=== PATIENT | female | born 1960 | race Caucasian/White ===

== ENCOUNTER → 2016-08-08 | Outpatient (CLI) | payer MEDICARE, MEDICAID ==
--- NOTE | 2016-08-08 14:50 | EKG REPORT ---
SEVERITY:- NORMAL ECG - SINUS RHYTHM : Confirmed by: Akanksha Cline 08-Aug-2016 14:49:48
== END ==
LOC: OD 12:45
PROVIDERS: ATTEND Physician Assistant
DX: Z79.899 Other long term (current) drug therapy (principal)
CPT/HCPCS: 93005; 93010

== ENCOUNTER → 2017-02-25 | Outpatient (CLI) | payer MEDICARE, MEDICAID ==
[2017-02-25 12:02] LABS: ABSOLUTE EOSINOPHILS # (AUTO) 0.1 10^3/uL (0.0-0.6); ABSOLUTE LYMPHOCYTES (AUTO) 1.9 10^3/uL (0.5-4.7); ABSOLUTE MONOCYTES (AUTO) 0.5 10^3/uL (0.1-1.4); ABSOLUTE NEUT (AUTO) 3.7 10^3/uL (1.7-8.2); BASOPHILS % (AUTO) 0.3 % (0-2); EOSINOPHILS % (AUTO) 1.6 % (0-6); HEMOGLOBIN 12.6 g/dL (12.0-15.5); HGB HCT DIFFERENCE 1.8; MEAN CORPUSCULAR HEMOGLOBIN 31.5 pg (27.0-33.4); MEAN CORPUSCULAR VOLUME 90 fl (80-97); MONOCYTES % (AUTO) 7.8 % (3-13); RED BLOOD COUNT 4.01 10^6/uL (3.72-5.28); SEGMENTED NEUTROPHILS % (AUTO) 59.3 % (42-78); WHITE BLOOD COUNT 6.3 10^3/uL (4.0-10.5)
[2017-02-25 12:13] LABS: APPEARANCE,URINE SLIGHTLY-CLOUDY; BILIRUBIN,URINE NEGATIVE (NEGATIVE); GLUCOSE, URINE NEGATIVE (NEGATIVE); KETONES,URINE NEGATIVE (NEGATIVE); LEUKOCYTE ESTERASE,URINE MODERATE (NEGATIVE); NITRITE,URINE NEGATIVE (NEGATIVE); PROTEIN,URINE NEGATIVE (NEGATIVE); URINE SPECIFIC GRAVITY 1.024; UROBILINOGEN,URINE NEGATIVE mg/dL (<2.0)
--- NOTE | 2017-02-25 12:18 | RADIOLOGY REPORT (SQ) ---
EXAM DESCRIPTION: CHEST PA/LATERAL COMPLETED DATE/TIME: 02/25/2017 12:01 pm REASON FOR STUDY: PRE OP COMPARISON: None. EXAM PARAMETERS: NUMBER OF VIEWS: two views TECHNIQUE: Digital Frontal and Lateral radiographic views of the chest acquired. RADIATION DOSE: NA LIMITATIONS: none FINDINGS: LUNGS AND PLEURA: No opacities, masses or pneumothorax. No pleural effusion. MEDIASTINUM AND HILAR STRUCTURES: No masses or contour abnormalities. HEART AND VASCULAR STRUCTURES: Heart normal size. No evidence for failure. BONES: No acute findings. HARDWARE: Partially visualized right total shoulder arthroplasty. OTHER: No other significant finding. IMPRESSION: NO SIGNIFICANT RADIOGRAPHIC FINDING IN THE CHEST. TECHNICAL DOCUMENTATION: JOB ID: [id number] [employer]- All Rights Reserved
[2017-02-25 12:22] LABS: ANION GAP 11 (5-19); BLOOD UREA NITROGEN 17 mg/dL (7-20); CALCIUM 9.3 mg/dL (8.4-10.2); CARBON DIOXIDE 25 mmol/L (22-30); CHLORIDE 105 mmol/L (98-107); CREATININE RESULT 0.96 mg/dL (0.52-1.25); GLUCOSE 114 mg/dL (75-110); POTASSIUM 3.9 mmol/L (3.6-5.0); SODIUM 140.7 mmol/L (137-145)
--- NOTE | 2017-02-25 13:30 | EKG REPORT ---
SEVERITY:- BORDERLINE ECG - SINUS RHYTHM NONSPECIFIC ST-T CHANGES : Confirmed by: Pritesh Toure MD 25-Feb-2017 13:29:32
== END ==
LOC: OD 10:24
PROVIDERS: ATTEND Orthopaedic Surgery
DX: Z01.810 Encounter for preprocedural cardiovascular examination (principal); Z01.812 Encounter for preprocedural laboratory examination; Z01.818 Encounter for other preprocedural examination
CPT/HCPCS: 36415; 71020; 80048; 81001; 85025; 93005; 93010

== ENCOUNTER 2017-03-23 09:36 | Inpatient (IN) | payer MEDICARE, MEDICAID ==
[~2017-03-23 09:36] MED LIST: CEFAZOLIN INJ 1 GM VIAL ONE; IBUPROFEN 800 MG/NS 250 ML IV PRN; LACTATED RINGERS 1000 ML IV PRN; LANSOPRAZOLE 15 MG TAB.RAP.DR PO PRN; LIDOCAINE 0.5% INJ-PF (5 MG/ML) 50 ML SDV SUBCUT PRN; OXYCODONE HCL SR 10 MG TABLET PO PRN; PHENYLEPHRINE HCL INJ/PF 10 MG/1 ML SDV ONE; SUCCINYLCHOLINE CHLORIDE INJ 200 MG/10 ML VIAL ONE; VANCOMYCIN HCL 1,000 MG in DEXTROSE 5%-WATER 250 ML IV PRN
[2017-03-23] MEDS ORDERED: TRANEXAMIC ACID INJ/PF 1,000 MG/10 ML SDV IV ONE ×2 (11:31→15:00)
[2017-03-23] MEDS ORDERED: PROPOFOL INJ 200 MG/20 ML VIAL IV ONE ×2 (11:31)
[2017-03-23] MEDS ORDERED: LIDOCAINE 2% INJ-PF (20 MG/ML) 10 ML AMPUL ONE (11:31)
[2017-03-23] MEDS ORDERED: FENTANYL CITRATE INJ/PF 250 MCG/5 ML AMPULE ONE ×2 (11:31)
[2017-03-23] MEDS ORDERED: ONDANSETRON HCL INJ/PF 4 MG/2 ML SDV ONE ×2 (11:31)
[2017-03-23] MEDS ORDERED: MIDAZOLAM 2 MG/2 ML INJ ONE ×2 (11:31)
[2017-03-23] MEDS ORDERED: THROMBIN (BOVINE) TOPICAL 20000 UNIT VIAL ONE (11:38)
[2017-03-23] MEDS ORDERED: THROMBIN (BOVINE) TOPICAL 5000 UNIT VIAL ONE (11:38)
[2017-03-23] MEDS ORDERED: VANCOMYCIN HCL INJ 1000 MG VIAL ONE (12:24)
[2017-03-23] MEDS ORDERED: PROMETHAZINE HCL INJ 25 MG/1 ML VIAL IV PRN ×2 (12:29)
[2017-03-23] MEDS ORDERED: ONDANSETRON HCL INJ/PF 4 MG/2 ML SDV IV PRN (12:29)
[2017-03-23] MEDS ORDERED: FENTANYL CITRATE INJ/PF 100 MCG/2 ML AMPUL IV PRN ×3 (12:29)
[2017-03-23] MEDS ORDERED: MEPERIDINE HCL/PF INJ 25 MG/1 ML DISP.SYRIN IV PRN (12:29)
[2017-03-23] MEDS ORDERED: DIPHENHYDRAMINE HCL 50 MG/ML VIAL IV PRN ×2 (12:29→13:09)
[2017-03-23] MEDS ORDERED: OXYCODONE-ACETAMINOPHEN 5-325 MG TABLET PO PRN ×2 (12:29)
[2017-03-23] MEDS ORDERED: MORPHINE SULFATE 10 MG/ML INJ IV PRN ×4 (12:29→13:09)
--- NOTE | 2017-03-23 13:08 | Operative Report ---
Operative Report DATE OF SURGERY: 03/23/17 PREOPERATIVE DIAGNOSIS: Right medial femoral condyle osteonecrosis OPERATION: Right knee arthroplasty SURGEON: LENORA BLACKMON ANESTHESIA: Spinal TISSUE REMOVED OR ALTERED: Bone to pathology ESTIMATED BLOOD LOSS: 100 PROCEDURE: Implants used: Femur: [place] triathlon #5 CR femur Tibia: 4 tibia Tibial liner: 9 mm CS insert Patella: 35 mm oval patella Procedure with the patient supine on the operating table the right the limb is prepped and draped in a sterile fashion. The limb was elevated for exsanguination and the tourniquet inflated to 280 torr. A standard midline median parapatellar approach the knee is taken. Access is gained to the femoral canal through the intercondylar notch. Intramedullary alignment instrumentation used to resect 10 mm of distal femur in 5 of valgus. Sizing guide indicated a size 5 femur. Appropriate cutting jig is then used to fashion anterior posterior and chamfer cuts. A trial reduction femurs performed and this is judged to be adequate. Attention was next turned to the tibia. Using an extra medullary alignment system 9 millimeters was resected off the lateral tibial plateau. This is sized to a size 4 tibia. A trial reduction was now performed with a 5 femur and a for tibia using a 9 millimeters spacer. It is full extension and central patellofemoral tracking. The articular surface the patella was next resected using an oscillating saw. All trial implants were removed. Polymethylmethacrylate is mixed and used to cement the above implants in place. On adequate curing the cement excess cement was removed the tourniquet was deflated hemostasis obtained the wound is then closed in layers using interrupted Vicryl followed by sarthak. A sterile compressive dressing was applied and the patient returned to recovery room in satisfactory condition.
[2017-03-23] MEDS ORDERED: RINGERS SOLUTION,LACTATED 1,000 ML IV PRN (13:09)
[2017-03-23] MEDS ORDERED: ZOLPIDEM TARTRATE 5 MG TABLET PO PRN (13:09)
[2017-03-23] MEDS ORDERED: MAG HYDROX/AL HYDROX/SIMETH SUSP 30 ML UDCUP PO PRN (13:09)
[2017-03-23] MEDS ORDERED: MORPHINE SULFATE 10 MG/ML INJ ONE (13:43)
--- NOTE | 2017-03-23 14:15 | RADIOLOGY REPORT (SQ) ---
EXAM DESCRIPTION: KNEE RIGHT 2 VIEWS COMPLETED DATE/TIME: 03/23/2017 1:58 pm REASON FOR STUDY: Post OP -Long Cassette in PACU M17.11 UNILATERAL PRIMARY OSTEOARTHRITIS, RIGHT KN EE COMPARISON: None. NUMBER OF VIEWS: Two view(s). TECHNIQUE: Digital radiographic images of the right knee post-procedure. LIMITATIONS: None. FINDINGS: BONES: No worrisome or unexpected findings post-procedure. DEVICE: Total knee arthroplasty. SOFT TISSUES: No worrisome findings. Expected postoperative soft tissue changes. IMPRESSION: SATISFACTORY POSTOPERATIVE RIGHT KNEE. TECHNICAL DOCUMENTATION: JOB ID: [id number] [employer]- All Rights Reserved
[2017-03-23] MEDS ORDERED: BUPIVACAINE INJ/PF LIPOSOME/PF 266 MG/20 ML SDV ONE (14:46)
[2017-03-23] MEDS: OXYCODONE HCL IR 5 MG TABLET PO PRN (16:08)
[2017-03-23] MEDS ORDERED: DOCUSATE SODIUM 100 MG CAPSULE PO SCH (18:00)
[2017-03-23] MEDS ORDERED: ICOSAPENT ETHYL PO SCH (18:00)
[2017-03-23] MEDS: FERROUS SULFATE 325 MG TABLET PO SCH (18:52)
[2017-03-23] MEDS: SENNOSIDES/DOCUSATE 8.6-50 MG 1 EACH TABLET PO SCH (18:52)
[2017-03-23] MEDS: IBUPROFEN 800 MG in NORMAL SALINE 250 ML IV SCH (18:52)
[2017-03-23] MEDS: METOPROLOL TARTRATE 25 MG TABLET PO SCH (21:24)
[2017-03-23] MEDS: ZOLPIDEM TARTRATE 5 MG TABLET PO SCH (21:36)
[2017-03-23] MEDS: PREGABALIN 100 MG CAPSULE PO SCH (21:36)
[2017-03-23] MEDS: OXYCODONE HCL SR 10 MG TABLET PO SCH (21:36)
[2017-03-23] MEDS: RIVAROXABAN 10 MG TABLET PO SCH (21:37)
[2017-03-23] MEDS ORDERED: ZOLPIDEM TARTRATE PO SCH (22:00)
[2017-03-23] MEDS: LORAZEPAM 1 MG TABLET PO SCH (22:22)
[2017-03-24] MEDS: OXYCODONE HCL IR 5 MG TABLET PO PRN ×3 (00:13→20:31)
[2017-03-24] MEDS ORDERED: VANCOMYCIN HCL 1,000 MG in DEXTROSE 5%-WATER 250 ML IV ONE (01:00)
[2017-03-24] MEDS: IBUPROFEN 800 MG in NORMAL SALINE 250 ML IV SCH ×3 (01:58→17:30)
[2017-03-24 05:28] LABS: HEMATOCRIT 31.6 % (36.0-47.0); HEMOGLOBIN 10.8 g/dL (12.0-15.5); HGB HCT DIFFERENCE 0.8; MEAN CORPUSCULAR HEMOGLOBIN 31.6 pg (27.0-33.4); MEAN CORPUSCULAR HGB CONC 34.2 g/dL (32.0-36.0); MEAN CORPUSCULAR VOLUME 92 fl (80-97); RED BLOOD COUNT 3.43 10^6/uL (3.72-5.28); RED CELL DISTRIBUTION WIDTH 13.2 % (11.5-14.0); WHITE BLOOD COUNT 7.5 10^3/uL (4.0-10.5)
[2017-03-24 05:50] LABS: ANION GAP 10 (5-19); BLOOD UREA NITROGEN 16 mg/dL (7-20); CALCIUM 9.2 mg/dL (8.4-10.2); CARBON DIOXIDE 27 mmol/L (22-30); CHLORIDE 106 mmol/L (98-107); CREATININE RESULT 1.04 mg/dL (0.52-1.25); GLUCOSE 137 mg/dL (75-110); POTASSIUM 4.2 mmol/L (3.6-5.0); SODIUM 142.9 mmol/L (137-145)
[2017-03-24] MEDS: LANSOPRAZOLE 30 MG TAB.RAP.DR PO SCH (06:49)
--- NOTE | 2017-03-24 07:13 | PDOC PROGRESS REPORT ---
Subjective Progress Note for:: 03/24/17 Subjective:: Patient sleeping soundly Physical Exam Vital Signs: Temp Pulse Resp BP Pulse Ox 37.1 C 114 H 19 128/56 H 97 03/24/17 03:24 03/24/17 03:24 03/24/17 03:24 03/24/17 03:24 03/24/17 03:24 Intake & Output 03/23/17 03/24/17 03/25/17 06:59 06:59 06:59 Intake Total 5658 Output Total 2850 Balance 2808 General appearance: PRESENT: no acute distress, obese Head exam: PRESENT: normocephalic Respiratory exam: PRESENT: unlabored Cardiovascular exam: PRESENT: RRR Vascular exam: PRESENT: normal capillary refill GI/Abdominal exam: PRESENT: soft Rectal exam: PRESENT: deferred Extremities exam: PRESENT: other - Right lower extremity dressing is clean dry and intact. There is minimal edema distally. There is brisk capillary refill. Results Laboratory Results: 03/24/17 04:56 03/24/17 04:56 03/23/17 03/24/17 03/24/17 10:00 04:56 04:56 WBC 7.5 RBC 3.43 L Hgb 10.8 L Hct 31.6 L MCV 92 MCH 31.6 MCHC 34.2 RDW 13.2 Plt Count 205 Sodium 142.9 Potassium 4.7 4.2 Chloride 106 Carbon Dioxide 27 Anion Gap 10 BUN 16 Creatinine 1.04 Est GFR ( Amer) > 60 Est GFR (Non-Af Amer) 54 L Glucose 137 H Calcium 9.2 Impressions: Knee X-Ray 03/23/17 13:11 IMPRESSION: SATISFACTORY POSTOPERATIVE RIGHT KNEE. Status: Imported from PACS Assessment & Plan - Diagnosis (1) Arthritis of right knee Is this a current diagnosis for this admission?: Yes Plan: 56-year-old white female postop day 1 from right knee arthritis. Progress with physical therapy yesterday was relatively limited. Plan for continued efforts at range of motion, strengthening, and weightbearing as tolerated ambulation today. Discharge plans pending physical therapy evaluation. - Time Time Spent with patient: 15-24 minutes Anticipated discharge: Other Within: Other
[2017-03-24] MEDS: ONDANSETRON 4 MG TAB.RAPDIS PO PRN ×2 (09:12→21:55)
[2017-03-24] MEDS: MULTIVITAMIN TABLET PO SCH (09:42)
[2017-03-24] MEDS: OXYCODONE HCL SR 10 MG TABLET PO SCH ×2 (09:42→21:23)
[2017-03-24] MEDS: PREGABALIN 100 MG CAPSULE PO SCH ×2 (09:42→21:23)
[2017-03-24] MEDS: PRENATAL VITAMIN W-O CA NO5/FE FUMARATE/FA CAPSULE PO SCH (09:43)
[2017-03-24] MEDS: CHOLECALCIFEROL (D3) 1,000 UNIT TABLET PO SCH (09:43)
[2017-03-24] MEDS: SENNOSIDES/DOCUSATE 8.6-50 MG 1 EACH TABLET PO SCH ×2 (09:44→17:30)
[2017-03-24] MEDS: FENOFIBRATE NANOCRYSTALLIZED 145 MG TABLET PO SCH (09:44)
[2017-03-24] MEDS: CALCIUM ACETATE 667 MG CAPSULE PO SCH ×2 (09:44→17:29)
[2017-03-24] MEDS: FERROUS SULFATE 325 MG TABLET PO SCH ×2 (09:45→17:29)
[2017-03-24] MEDS: DOCUSATE SODIUM 100 MG CAPSULE PO SCH (09:45)
[2017-03-24] MEDS: HYDROCHLOROTHIAZIDE 12.5 MG CAPSULE PO SCH (09:45)
[2017-03-24] MEDS: FLUOXETINE HCL 20 MG CAPSULE PO SCH (09:46)
[2017-03-24] MEDS: ASCORBIC ACID 500 MG TABLET PO SCH (09:47)
[2017-03-24] MEDS: LISINOPRIL 10 MG TABLET PO SCH (09:49)
[2017-03-24] MEDS: METOPROLOL TARTRATE 25 MG TABLET PO SCH ×2 (09:49→21:23)
[2017-03-24] MEDS ORDERED: ASCORBIC ACID PO SCH (10:00)
[2017-03-24] MEDS ORDERED: [UNRECOGNIZED DRUG - OTHER] PO SCH (10:00)
[2017-03-24] MEDS ORDERED: FLUOXETINE HCL 20 MG CAPSULE PO SCH (10:00)
[2017-03-24] MEDS ORDERED: (PENDING PHARMACY ID) (Multivitamin [Multivitamins] 1 CAP) PO SCH (10:00)
[2017-03-24] MEDS ORDERED: FLUOXETINE HCL PO SCH (10:00)
[2017-03-24] MEDS ORDERED: (PENDING PHARMACY ID) (Cholecalciferol (Vitamin D3) [Vitamin D3] 1 TAB) PO SCH (10:00)
[2017-03-24] MEDS ORDERED: (PENDING PHARMACY ID) (Fenofibrate,Micronized [Fenofibrate] 130 MG) PO SCH (10:00)
[2017-03-24] MEDS ORDERED: (PENDING PHARMACY ID) (Lisinopril/Hydrochlorothiazide [Lisinopril-Hctz 10-12.5 Mg Tab] 1 T PO SCH (10:00)
[2017-03-24] MEDS: MORPHINE SULFATE 10 MG/ML INJ IM PRN (14:57)
[2017-03-24] MEDS: RIVAROXABAN 10 MG TABLET PO SCH (21:23)
[2017-03-24] MEDS: ZOLPIDEM TARTRATE 5 MG TABLET PO SCH (21:23)
[2017-03-25] MEDS: IBUPROFEN 800 MG in NORMAL SALINE 250 ML IV SCH ×3 (01:41→17:46)
[2017-03-25] MEDS: LORAZEPAM 1 MG TABLET PO SCH ×2 (01:42→23:34)
[2017-03-25] MEDS: LANSOPRAZOLE 30 MG TAB.RAP.DR PO SCH (06:16)
[2017-03-25 06:19] LABS: HEMATOCRIT 29.5 % (36.0-47.0); HEMOGLOBIN 9.9 g/dL (12.0-15.5); HGB HCT DIFFERENCE 0.2; MEAN CORPUSCULAR HEMOGLOBIN 31.6 pg (27.0-33.4); MEAN CORPUSCULAR HGB CONC 33.6 g/dL (32.0-36.0); MEAN CORPUSCULAR VOLUME 94 fl (80-97); RED BLOOD COUNT 3.13 10^6/uL (3.72-5.28); RED CELL DISTRIBUTION WIDTH 12.8 % (11.5-14.0); WHITE BLOOD COUNT 8.1 10^3/uL (4.0-10.5)
--- NOTE | 2017-03-25 07:51 | PDOC PROGRESS REPORT ---
Subjective Progress Note for:: 03/25/17 Subjective:: Patient complains of pain but is adamant that she has adequate mobility to be discharged home today. Physical Exam Vital Signs: Temp Pulse Resp BP Pulse Ox 36.9 C 111 H 16 140/61 H 94 03/24/17 22:00 03/24/17 19:53 03/24/17 22:00 03/24/17 22:00 03/25/17 00:15 Intake & Output 03/24/17 03/25/17 03/26/17 06:59 06:59 06:59 Intake Total 5658 4220 Output Total 2850 1800 Balance 2808 2420 Weight 113.4 kg Physical Exam: Patient sleeping soundly and difficult to arouse General appearance: PRESENT: no acute distress, obese Head exam: PRESENT: normocephalic Respiratory exam: PRESENT: unlabored Cardiovascular exam: PRESENT: RRR Pulses: PRESENT: +1 pedal pulses bilateral Vascular exam: PRESENT: normal capillary refill GI/Abdominal exam: PRESENT: soft Rectal exam: PRESENT: deferred Extremities exam: PRESENT: other - Right lower extremity picot dressing clean dry and intact. There is mild pedal edema. Distal neurovascular examination is intact. Neurological exam: PRESENT: alert, awake, oriented to person, oriented to place , oriented to time, oriented to situation. ABSENT: motor sensory deficit Psychiatric exam: PRESENT: appropriate affect, normal mood. ABSENT: homicidal ideation, suicidal ideation Skin exam: PRESENT: dry, intact, warm. ABSENT: cyanosis, rash Results Laboratory Results: 03/25/17 05:23 03/24/17 04:56 03/25/17 05:23 WBC 8.1 RBC 3.13 L Hgb 9.9 L Hct 29.5 L MCV 94 MCH 31.6 MCHC 33.6 RDW 12.8 Plt Count 199 Impressions: Knee X-Ray 03/23/17 13:11 IMPRESSION: SATISFACTORY POSTOPERATIVE RIGHT KNEE. Status: Imported from PACS Assessment & Plan - Diagnosis (1) Arthritis of right knee Is this a current diagnosis for this admission?: Yes Plan: 56-year-old white female status post right knee arthroplasty for avascular necrosis in the medial femoral condyle. The patient's really made minimal progress with physical therapists at this point. She feels that she is ready for discharge home and can convey herself in a wheelchair. This may be true but it makes me somewhat uncomfortable. Plan will be for aggressive physical therapy this morning and reevaluation at noon as to whether or not she is capable of returning home with home health nursing. Patient is adamant that she is not interested in retirement facility. - Time Time Spent with patient: 15-24 minutes Anticipated discharge: Home with Homehealth Within: within 24 hours
[2017-03-25] MEDS: SENNOSIDES/DOCUSATE 8.6-50 MG 1 EACH TABLET PO SCH ×2 (09:08→17:44)
[2017-03-25] MEDS: FERROUS SULFATE 325 MG TABLET PO SCH ×2 (09:09→17:44)
[2017-03-25] MEDS: FENOFIBRATE NANOCRYSTALLIZED 145 MG TABLET PO SCH (09:09)
[2017-03-25] MEDS: DOCUSATE SODIUM 100 MG CAPSULE PO SCH (09:10)
[2017-03-25] MEDS: PREGABALIN 100 MG CAPSULE PO SCH ×2 (09:10→22:25)
[2017-03-25] MEDS: FLUOXETINE HCL 20 MG CAPSULE PO SCH (09:11)
[2017-03-25] MEDS: CALCIUM ACETATE 667 MG CAPSULE PO SCH ×2 (09:11→17:44)
[2017-03-25] MEDS: CHOLECALCIFEROL (D3) 1,000 UNIT TABLET PO SCH (09:11)
[2017-03-25] MEDS: HYDROCHLOROTHIAZIDE 12.5 MG CAPSULE PO SCH (09:11)
[2017-03-25] MEDS: PRENATAL VITAMIN W-O CA NO5/FE FUMARATE/FA CAPSULE PO SCH (09:12)
[2017-03-25] MEDS: ASCORBIC ACID 500 MG TABLET PO SCH (09:12)
[2017-03-25] MEDS: MULTIVITAMIN TABLET PO SCH (09:12)
[2017-03-25] MEDS: METOPROLOL TARTRATE 25 MG TABLET PO SCH ×2 (09:19→22:25)
[2017-03-25] MEDS: LISINOPRIL 10 MG TABLET PO SCH (09:19)
[2017-03-25] MEDS: OXYCODONE HCL SR 10 MG TABLET PO SCH (11:21)
[2017-03-25] MEDS: OXYCODONE HCL IR 5 MG TABLET PO PRN ×2 (13:12→23:35)
[2017-03-25] MEDS ORDERED: [UNRECOGNIZED DRUG - OTHER] PO SCH (14:00)
[2017-03-25] MEDS: MORPHINE SULFATE 10 MG/ML INJ IM PRN (15:38)
[2017-03-25] MEDS: ACETAMINOPHEN 325 MG TABLET PO PRN (15:54)
[2017-03-25] MEDS: RIVAROXABAN 10 MG TABLET PO SCH (22:25)
[2017-03-26] MEDS: IBUPROFEN 800 MG in NORMAL SALINE 250 ML IV SCH ×2 (00:50→09:54)
[2017-03-26] MEDS: ACETAMINOPHEN 325 MG TABLET PO PRN (01:25)
[2017-03-26] MEDS: ZOLPIDEM TARTRATE 5 MG TABLET PO SCH (02:13)
[2017-03-26] MEDS: MORPHINE SULFATE 10 MG/ML INJ IM PRN ×2 (02:59→05:18)
[2017-03-26] MEDS: LANSOPRAZOLE 30 MG TAB.RAP.DR PO SCH (05:18)
[2017-03-26 06:30] LABS: MEAN CORPUSCULAR HEMOGLOBIN 32.1 pg (27.0-33.4); MEAN CORPUSCULAR HGB CONC 34.8 g/dL (32.0-36.0); MEAN CORPUSCULAR VOLUME 92 fl (80-97); RED BLOOD COUNT 2.82 10^6/uL (3.72-5.28); RED CELL DISTRIBUTION WIDTH 12.9 % (11.5-14.0); WHITE BLOOD COUNT 8.1 10^3/uL (4.0-10.5)
--- NOTE | 2017-03-26 06:38 | PDOC DISCHARGE SUMMARY ---
General - Admit/Disc Date/PCP Admission Date/Primary Care Provider: 03/23/17 09:36 TEJA JULES Discharge Date: 03/26/17 - Discharge Diagnosis (1) Arthritis of right knee Is this a current diagnosis for this admission?: Yes - Additional Information Resuscitation Status: Full Code Discharge Diet: As Tolerated, Regular Discharge Activity: Balance Activity w/Rest, No Driving, No tub bath Home Medications: Ascorbic Acid [Vitamin C] 500 mg PO DAILY 03/23/17 Calcium Acetate [Phoslo 667 mg Capsule] 667 mg PO BID 03/23/17 Cholecalciferol (Vitamin D3) [Vitamin D3 1000 Unit Tablet] 1,000 unit PO DAILY 03/23/17 Dexlansoprazole [Dexilant 60 mg Capsule] 60 mg PO DAILY 03/23/17 Diphenhydramine HCl [Benadryl 50 mg Capsule] 50 mg PO QHS 03/23/17 Docusate Sodium [Colace 100 mg Capsule] 100 mg PO DAILY 03/23/17 Elviteg/Megan/Emtric/Tenofo Ala [Genvoya Tablet] 1 each PO DAILY 03/23/17 Fenofibrate,Micronized [Fenofibrate] 130 mg PO DAILY 03/23/17 Ferrous Sulfate [Feosol 325 mg Tablet] 325 mg PO BID 03/23/17 Fluoxetine HCl [Prozac] 40 mg PO DAILY 03/23/17 Ibuprofen [Motrin 600 mg Tablet] 600 mg PO TIDP PRN 03/23/17 Icosapent Ethyl [Vascepa] 2 gm PO BID 03/23/17 Lido/Prilocn Cream 1 applic TOP BID 03/23/17 Lisinopril/Hydrochlorothiazide [Lisinopril-Hctz 10-12.5 mg Tab] 1 each PO DAILY 03/23/17 Lorazepam 5 mg PO QHS 03/23/17 Metoprolol Tartrate [Lopressor 25 mg Tablet] 25 mg PO Q12 03/23/17 Multivitamin [Tab-A-Romero] 1 each PO DAILY 03/23/17 Oxycodone HCl [Oxycodone HCl 10 MG Tablet] 10 mg PO BIDP PRN 03/23/17 Oxycodone HCl [Oxycontin] 15 mg PO Q12 03/23/17 Pregabalin [Lyrica 100 mg Capsule] 100 mg PO BID 03/23/17 Quetiapine Fumarate [Seroquel 25 mg Tablet] 25 mg PO HSP PRN 03/23/17 Ropinirole HCl [Requip 2 mg Tablet] 2 mg PO QHS 03/23/17 Zolpidem Tartrate [Ambien] 15 mg PO QHS 03/23/17 Oxycodone HCl [Oxy-Ir 5 mg Tablet] 5 mg PO Q6HP PRN tablet 03/26/17 History of Present Illness History of Present Illness: HIMANSHU CHURCH is a 56 year old female progressive right knee pain and functional disability secondary to a medial femoral condyle osteonecrosis. Patient is admitted for elective right knee arthroplasty. Hospital Course Hospital Course: She is admitted through the operating room where she undergoes uncomplicated right knee arthroplasty. She is returned to the floor in satisfactory condition. Her progress with physical therapy somewhat limited. On the second postoperative day she is ambulating using her wheelchair as a rolling walker. This is an adequate functional level to allow her to return home to her dogs. Physical Exam Vital Signs: Temp Pulse Resp BP Pulse Ox 36.7 C 92 16 119/79 94 03/26/17 04:00 03/26/17 04:00 03/26/17 04:00 03/26/17 04:00 03/25/17 16:00 Intake & Output 03/24/17 03/25/17 03/26/17 06:59 06:59 06:59 Intake Total 5658 4220 1215 Output Total 2850 1800 1150 Balance 2808 2420 65 Weight 113.4 kg General appearance: PRESENT: no acute distress Head exam: PRESENT: normocephalic Respiratory exam: PRESENT: unlabored Cardiovascular exam: PRESENT: RRR Pulses: PRESENT: +1 pedal pulses bilateral Vascular exam: PRESENT: normal capillary refill GI/Abdominal exam: PRESENT: soft Rectal exam: PRESENT: deferred Extremities exam: PRESENT: other - Right knee picot dressing is clean dry and intact. There is a minor amount of pedal edema. Distal neurovascular examination is intact. Neurological exam: PRESENT: alert, awake, oriented to person, oriented to place , oriented to time, oriented to situation. ABSENT: motor sensory deficit Psychiatric exam: PRESENT: appropriate affect, normal mood. ABSENT: homicidal ideation, suicidal ideation Skin exam: PRESENT: dry, intact, warm. ABSENT: cyanosis, rash Results Laboratory Results: 03/26/17 05:31 03/24/17 04:56 03/26/17 05:31 WBC 8.1 RBC 2.82 L Hgb 9.0 L Hct 26.0 L MCV 92 MCH 32.1 MCHC 34.8 RDW 12.9 Plt Count 218 Impressions: Knee X-Ray 03/23/17 13:11 IMPRESSION: SATISFACTORY POSTOPERATIVE RIGHT KNEE. Status: Imported from PACS Plan Discharge Plan: Patient to be discharged home with home health nursing, home health physical therapy, wheeled walker, bedside commode. Visiting nurse service to change the knee picot dressing on postop day 7 replaced with an OpSite. Follow-up will be with Dr. Burdick and [facility] for surgery in 2 weeks for staple removal. Time Spent: Less than 30 Minutes
[2017-03-26 08:55] VITALS: BP 135/72
[2017-03-26] MEDS: LISINOPRIL 10 MG TABLET PO SCH (09:51)
[2017-03-26] MEDS: FLUOXETINE HCL 20 MG CAPSULE PO SCH (09:51)
[2017-03-26] MEDS: CHOLECALCIFEROL (D3) 1,000 UNIT TABLET PO SCH (09:52)
[2017-03-26] MEDS: SENNOSIDES/DOCUSATE 8.6-50 MG 1 EACH TABLET PO SCH (09:52)
[2017-03-26] MEDS: FERROUS SULFATE 325 MG TABLET PO SCH (09:52)
[2017-03-26] MEDS: FENOFIBRATE NANOCRYSTALLIZED 145 MG TABLET PO SCH (09:52)
[2017-03-26] MEDS: ASCORBIC ACID 500 MG TABLET PO SCH (09:52)
[2017-03-26] MEDS: MULTIVITAMIN TABLET PO SCH (09:52)
[2017-03-26] MEDS: PRENATAL VITAMIN W-O CA NO5/FE FUMARATE/FA CAPSULE PO SCH (09:53)
[2017-03-26] MEDS: CALCIUM ACETATE 667 MG CAPSULE PO SCH (09:53)
[2017-03-26] MEDS: DOCUSATE SODIUM 100 MG CAPSULE PO SCH (09:53)
[2017-03-26] MEDS: PREGABALIN 100 MG CAPSULE PO SCH (09:53)
[2017-03-26] MEDS: HYDROCHLOROTHIAZIDE 12.5 MG CAPSULE PO SCH (09:53)
[2017-03-26] MEDS: METOPROLOL TARTRATE 25 MG TABLET PO SCH (09:54)
== END 2017-03-26 09:57 | disposition home health service (06) | DRG 470 ==
LOC: INOR 09:36 → 4S 14:43
PROVIDERS: ADMIT Orthopaedic Surgery; ATTEND Orthopaedic Surgery
PROC: 0SRC0J9 Replacement of Right Knee Joint with Synthetic Substitute, Cemented, Open Approach (ICD-10-PCS; principal; 2017-03-23 12:00)
DX: M87.851 Other osteonecrosis, right femur (principal); M17.11 Unilateral primary osteoarthritis, right knee; I10 Essential (primary) hypertension; K21.9 Gastro-esophageal reflux disease without esophagitis; Z21 Asymptomatic human immunodeficiency virus [HIV] infection status; Z79.899 Other long term (current) drug therapy
CPT/HCPCS: 01402; 36415; 80048; 84132; 85027; 88305; 88311; 94799; C9290; G8978-GP; G8979-GP; G8987-GO; G8988-GO; J0330; J0690; J1741; J2250; J2270; J2370; J2405; J2704; J3010; J3370; J3490; J7050; J7060; S0119

== ENCOUNTER → 2017-06-16 | Outpatient (CLI) | payer MEDICARE, MEDICAID ==
--- NOTE | 2017-06-16 15:26 | WOMENS IMAGING REPORT ---
EXAM DESCRIPTION: BONE DENSITY HIP/SPINE COMPLETED DATE/TIME: 06/16/2017 2:34 pm REASON FOR STUDY: SCREENING MAMMO; ASYMPTOMATIC MENOPAUSAL STATE Z78.0 ASYMPTOMATIC MENOPAUSAL STAT E Z12.31 ENCNTR SCREEN MAMMOGRAM FOR MALIGNANT NEOPLASM OF [place] COMPARISON: 08/11/2013 TECHNIQUE: Dual-Energy X-ray Absorptiometry (DEXA) of the AP Spine, Hip, and Forearm. LIMITATIONS: None. FINDINGS: HIP: The bone mineral density (BMD) measured in the left hip correlates with a T-score of -1.2 in the femo ral neck, which is osteopenia as defined by the World Health Organization. FOREARM: The bone mineral density (BMD) measured in the left forearm correlates with a T-score of -1.2 which i s osteopenia as defined by the World Health Organization. IMPRESSION: 1. HIP: OSTEOPENIA. 2. FOREARM: OSTEOPENIA. COMMENT: The World Health Organization defines low BMD as follows: T-score: Normal: Greater than -1.0 Osteopenia: Between -1.0 and -2.5 Osteoporosis: Less than -2.5 without fractures Established osteoporosis: Less than -2.5 with fractures In general, you may wish to consider: Diagnosis Treatment Follow-up DEXA Normal BMD Prevention 2-3 years Osteopenia Prevention/Therapy 1-2 years Osteoporosis Therapy Yearly TECHNICAL DOCUMENTATION: JOB ID: [id number]- All Rights Reserved
--- NOTE | 2017-06-16 16:23 | WOMENS IMAGING REPORT ---
EXAM DESCRIPTION: BILAT SCREENING MAMMO W/CAD COMPLETED DATE/TIME: 06/16/2017 2:34 pm REASON FOR STUDY: SCREENING MAMMO; ASYMPTOMATIC MENOPAUSAL STATE Z78.0 ASYMPTOMATIC MENOPAUSAL STAT E Z12.31 ENCNTR SCREEN MAMMOGRAM FOR MALIGNANT NEOPLASM OF [place] COMPARISON: None available TECHNIQUE: Standard craniocaudal and mediolateral oblique views of each breast recorded using digita l acquisition. LIMITATIONS: None. FINDINGS: Findings present which are benign by mammographic criteria. No suspicious masses, calcifi cations or architectural distortion. Pertinent benign findings: Benign right breast parenchymal calcifications. Postsurgical changes bila teral breast reduction. Read with the assistance of CAD. .[facility] - R2 Cenova Version 1.3 .[facility] - R2 Cenova Version 1.3 .[facility] - R2 Cenova Version 2.4 .[facility] [place] R2 Cenova Version 2.4 .[facility] - R2 [employer] Version 9.2 Benign mammographic findings may include one or more of the following: Smooth masses, popcorn/rim/co arse calcifications, asymmetries, post-procedure changes, and lesions with long-standing stability. IMPRESSION: BENIGN MAMMOGRAPHIC FINDINGS. BIRADS 2 BREAST DENSITY: b. There are scattered areas of fibroglandular density. BIRAD: 2 BENIGN FINDING(S) RECOMMENDATION: ROUTINE SCREENING Please consider bilateral screening tomosynthesis in May 2018 COMMENT: The patient has been notified of the results by letter per SA requirements. Additional no tification policies are in place for contacting patient with suspicious or incomplete findings. Quality ID #[id number]: The [employer] recommends an annual screening mammogram for women aged 40 years or over. This facility utilizes a reminder system to ensure that all patients receive reminder letters, and/or direct phone calls for appointments. This includes reminders for routine scr eening mammograms, diagnostic mammograms, or other Breast Imaging Interventions when appropriate. Th is patient will be placed in the appropriate reminder system. The [employer] (ACR) has developed recommendations for screening MRI of the breast s in certain patient populations, to be used in conjunction with mammography. Breast MRI surveillanc e may be appropriate for women with more than 20% lifetime risk of developing breast cancer as deter mined by genetic testing, significant family history of the disease, or history of mantle radiation f or Hodgkins Disease. ACR Practice Guidelines 2008. TECHNICAL DOCUMENTATION: FINDING NUMBER: (1) ASSESSMENT: (1) JOB ID: [id number] [employer]- All Rights Reserved
== END ==
LOC: WI 13:11
PROVIDERS: ATTEND Nurse Practitioner
DX: Z78.0 Asymptomatic menopausal state (principal); Z12.31 Encounter for screening mammogram for malignant neoplasm of breast; Z21 Asymptomatic human immunodeficiency virus [HIV] infection status
CPT/HCPCS: 77080; G0202; 77067